=== PATIENT | male | born 1995 | race Hispanic/Latino ===

== ENCOUNTER 2023-09-12 11:01 | Emergency (ER) | payer OTHER ==
[2023-09-12] MEDS ORDERED: Bacitracin 1 PK ONE (11:33)
[2023-09-12] MEDS ORDERED: Ondansetron PF 4 MG/2 ML Vial ONE (12:40)
== END 2023-09-12 13:13 | disposition home or self-care (01) ==
LOC: NAV ERS 11:01
DX: S60.512A Abrasion of left hand, initial encounter (principal); R55 Syncope and collapse; W26.8XXA Contact with other sharp object(s), not elsewhere classified, initial encounter; Y99.0 Civilian activity done for income or pay; Z87.891 Personal history of nicotine dependence
CPT/HCPCS: 96361; 96374; J2405